=== PATIENT | male | born 1970 | race African-American/Black ===

== ENCOUNTER 2017-02-04 00:08 | Emergency (ER) | payer MEDICAID ==
[~2017-02-04] VITALS: Ht 210.8 cm; Wt 146.5 kg
[2017-02-04 00:36] VITALS: BP 130/79
[2017-02-04] MEDS ORDERED: ONDANSETRON HCL 4 MG/2 ML VIAL IM ONE (02:45)
[2017-02-04] MEDS ORDERED: HYDROmorphone HCL 2 MG/ML VL IM ONE (02:45)
== END 2017-02-04 03:57 | disposition home or self-care (01) ==
LOC: ER 00:12
DX: M10.9 Gout, unspecified (principal); M25.562 Pain in left knee; G89.29 Other chronic pain; M54.9 Dorsalgia, unspecified
CPT/HCPCS: 36415; 73560; 84550; 96372; 99285; J1170; J2405